=== PATIENT | female | born 1985 | race Caucasian/White ===

== ENCOUNTER 2021-12-28 00:45 | Day surgery (SDC) | payer BC, SELFPAY ==
[2021-12-26 08:18] VITALS: BMI 30.4
--- NOTE | 2021-12-26 08:23 | PC.NURSE ---
Report to the Outpatient Waiting Room, entrance under the green pavilion located off [facility], at time 1000_ on date _12/28/21_. OR Time: _1200. - You and your visitor will be asked a series of questions to screen for COVID 19 for your protection. - Only one visitor is allowed at this time. - The patient visitor is requested to leave or wait in car when not with patient. - A mask is required within the hospital. Patients may have clear liquids (water, carbonated beverages, clear teas, apple juice) until 3 hours prior to surgery with a maximum of 20 ounces. - No food from midnight until time of surgery - Infants may have breast milk until 4 hours before surgery, infant formula 6 hours prior to surgery. - Children will be allowed to drink immediately following surgery. If applicable, please bring a bottle or sippy cup to assist with drinking. Juice, water, soda, and popsicles are readily available. For infants on formula, please bring formula the day of surgery. Pacifiers are allowed. Take the following medications with a SIP of water the morning of surgery: ____NONE Date to take last dose Please no make-up, nail maltese, hairspray, perfume, deodorant, or body powder the day of surgery. No jewelry (including any body piercings) or valuables the day of surgery, leave them at home. Please take a shower or bath the night before, or the morning of, surgery with an antibacterial soap. Wear comfortable, loose fitting clothing. Children are encouraged to wear pajamas. - Jewelry must be removed prior to entering the operating room. Rings and piercings that are not removed may be cut off. - The hospital will not accept responsibility for valuables. - Please leave all valuables, including medications, at home the day of surgery. If you are going home after surgery, a licensed ice delivery driver must drive you home. - NO public transportation without another adult. - We recommend that an adult stay with you for 24 hours following discharge. - We also recommend that you do not drive, make important decision, drink alcoholic beverages, or take any drugs that were not prescribed by your health care provider for at least 24 hours after your discharge time. For Pediatric surgeries, we recommend two adults accompany the child home (only one inside the building at this time). Follow any additional instructions given to you from your surgeon. If you or anyone in your household have experienced Covid symptoms in the past week, please notify your surgeon or the nurse liaison at the phone number below for possible testing. Telephone instructions given to _PATIENT_and asked if any additional questions and then verbalized understanding. Patient advised to call surgeon office or pre surgery nurse liaison [phone] if any additional questions.
[2021-12-28] VITALS (8 sets, daily range): BP systolic 123–139; BP diastolic 74–95; PULSE 58–109; RESP 11–24; TEMP 36.2–36.5; O2SAT 99–100
[2021-12-28] MEDS: ACETAMINOPHEN 500 MG TABLET 1000 MG PO (11:10)
[2021-12-28] MEDS: GABAPENTIN 300 MG CAPSULE PO (11:10)
[2021-12-28] MEDS: LACTATED RINGERS 1,000 ML 30 ML IV CONT ×2 (11:15→13:22)
--- NOTE | 2021-12-28 11:21 | WPDANESEPPF ---
Anes - Initial Pre Proc Eval Procedure: Operation Date: 12/28/21 12:00 Proposed Procedures p Diagnostic Laparoscopy, Bilateral Laparoscopic Salpingectomy, Possible Left Ovarian Cyst Drainage - Kala Solis DO Date/Time: 12/28/21 11:21 Surgeon: Kala Solis DO Pre Op Diagnosis: desires sterilization Patient Data Age: 36 Gender: F Height: 1.6 m Weight: 81.2 kg Last Vital Signs Temp 36.2 C L 12/28/21 11:12 Pulse 90 12/28/21 11:12 Resp 14 12/28/21 11:12 BP 128/74 12/28/21 11:12 Pulse Ox 99 12/28/21 11:12 O2 Del Method Room Air 12/28/21 11:12 Allergies Allergy/AdvReac Type Severity Reaction Status Date / Time No Known Allergies Allergy Verified 12/28/21 11:16 Home Medications Medication Instructions Recorded Confirmed Type drospirenone (contraceptive) 4 mg 1 tablet PO DAILY 12/26/21 12/26/21 History (28) tablet (Slynd) Patient hx anesthesia problems: none Family hx anesthesia problems: none Results Review: All pre-operative results and documents have been reviewed as part of the pre-operative evaluation. [facility] Social History Social History Smoking status: Never smoker Alcohol intake: current Drinks per week: 6 Substance use type: does not use Living arrangements: with family Anes - Eval Final PreProcedure Day of Procedure 12/28/21 11:21 Patient weight: obese Heart: regular rate and rhythm Lungs: clear to auscultation Airway: Mallampati scale class II Neurological: alert and oriented Last oral intake: >/= 8 hours ASA classification: II Emergent: no Anesthetic plan: proceed Anesthesia type and monitoring: general ETT and standard monitoring Results Review: All pre-operative results and documents have been reviewed as part of the pre-operative evaluation. Informed Consent: The patient's anesthetic plan and its attendant risks and benefits were discussed with the patient/family/POA. Questions were solicited and answers provided to the satisfaction of the patient/family/POA.
[2021-12-28] MEDS: SCOPOLAMINE 1.5 MG PATCH TRANSDERM (11:28)
--- NOTE | 2021-12-28 11:38 | P.HP_ITS ---
H&P: HPI History of Present Illness Date/Time: 12/28/21 11:38 Chief Complaint: Undesired fertility Narrative: Patient presents with undesired fertility requesting permanent sterilization Review of Systems Review of Systems: All systems reviewed & are unremarkable except as noted in HPI and below [facility] Social History Social History Smoking status: Never smoker Alcohol intake: current Drinks per week: 6 Substance use type: does not use Living arrangements: with family Meds Home Medications and Allergies Home Medications Medication Instructions Recorded Confirmed Type drospirenone (contraceptive) 4 mg 1 tablet PO DAILY 12/26/21 12/26/21 History (28) tablet (Slynd) Allergies Allergy/AdvReac Type Severity Reaction Status Date / Time No Known Allergies Allergy Verified 12/28/21 11:16 Vital Signs Vital Signs - 24 hr 12/28/21 11:12 Temperature 36.2 C L Pulse Rate 90 Respiratory Rate 14 Blood Pressure 128/74 Pulse Oximetry 99 Oxygen Delivery Room Air Exam Const: General: comfortable and no acute distress Eyes: General: appearance normal, both eyes and all related structures Cardio: Rate: regular rate Rhythm: regular rhythm GI: GI Palp: Yes Soft to palpation Auscultation: normal bowel sounds Skin: General skin exam: normal color Lesions: lesion noted Rashes: rashes noted Wounds: no wounds Neuro: General: gait normal Speech: normal speech Sensory Exam: normal sensation Extrem: General: normal to inspection Psych: Mental Status: mental status grossly normal Affect: normal affect Assessment and Plan Assessment and plan (1) Sterilization: Code(s): Z30.2 - Encounter for sterilization Status: Acute Assessment and Plan: Undesired fertility Plan Diagnostic lap, bilateral salpingectomy
--- NOTE | 2021-12-28 11:40 | WPDHPUPDATE1 ---
History and Physical Update Update Date/Time: 12/28/21 11:40 History and Physical has been reviewed, including an updated exam of the patient. There are NO changes in the patient's condition. Risks, benefits, and alternatives have been discussed and questions answered. Patient agrees to proceed with procedure.
[2021-12-28] MEDS: BUPIVACAINE/EPINEPHRINE 0.25% 50 ML VIAL 10 ML INFILTRATE (12:26)
[2021-12-28] MEDS: KETOROLAC 30 MG/ML VIAL (*BKC) IV PUSH (12:45)
--- NOTE | 2021-12-28 12:51 | P.OP_ITS ---
Procedure Note - Detailed Date of Procedure 12/28/21 Pre-op Diagnosis desires sterilization Post-op Diagnosis Same Procedure Performed Diagnostic laparoscopy, bilateral salpingectomy, drainage of left ovarian cyst Surgeon Kala Solis, DO Anesthesia General Indications Undesired fertility Findings Normal appearing vulva and vaginal canal. Normal cervix. Internally, the bowels and liver were grossly normal. The pelvic organs were unremarkable except for a simple cyst on the left ovary. There were 3 isolated endometriosis lesions. The 1 on the anterior left lower uterine segment, and 2 in the posterior cul-de-sac. There were no adhesions or evidence of diffuse disease. Description of Procedure The patient was taken to the operating room where she was placed under general anesthesia. No preoperative antibiotics were indicated. A time-out was performed. The patient was straight cathed. A speculum was placed in the cervix was visualized, the anterior lip was grasped with a single-tooth te naculum. Cervix was sequentially dilated up to accommodate a Kroner uterine manipulator. The uterus was sounded to 8 cm. The manipulator was placed the tenaculum and speculum were removed. Gloves were changed attention was then turned to the abdomen. The skin below the umbilicus was grasped with 2 penetrating towel clamps and the area was injected with local. A small incision was made and a Veress needle was introduced. The saline water drop test was performed to confirm intraperitoneal placement. CO2 insufflation was started and the abdomen was brought up to a filling pressure of 15 mmHg. Veress needle was replaced with a 5 mm Optiview trocar which was inserted under direct visualization. Survey of the abdomen revealed no evidence of bowel or vascular injury upon entry. Patient was placed in steep Trendelenburg position. Additional port sites in the right and left lower quadrants were identified, injected and incised. 5 mm trocars were introduced under direct visualization. The pelvic organs were elevated and a survey was performed. The right tube was elevated and was cauterized and transected off using LigaSure. It was passed off through the assistant clinical nurse manager port. The procedure was repeated in an identical fashion on the left side. Following this the left cyst was drained and clear fluid was noted. The 3 endometriosis lesions were ablated using the monopolar hook attachment to the LigaSure. All surgical pedicles were reinspected and found to be hemostatic. CO2 insufflation was allowed to escape from the abdomen and the trocars and instruments were removed. The abdominal incisions were closed with subcuticular 4-0 Monocryl and Steri-Strips. The uterine manipulator was removed. The patient was taken to the recovery room in stable condition. All instrument sponge counts were correct at the conclusion of the procedure. Estimated Blood Loss 5 IV Fluids 900 Drains No Packing No Complications No immediate complications Condition Stable Disposition PACU
[2021-12-28] MEDS: fentaNYL CITRATE INJ (*CRX) 100 MCG/2 ML VIAL 25 MCG IV PUSH ×8 (13:07→13:48)
[2021-12-28] MEDS: oxyCODONE HCL (*CRX) 5 MG TAB IR PO (14:16)
== END 2021-12-28 14:43 | disposition home or self-care (01) ==
PROVIDERS: PCP Physician Assistant; Visit Provider Obstetrics & Gynecology Gynecologic Oncology
PROC: (CPT 49320; principal; 2021-12-28 12:00)
DX: Z30.2 Encounter for sterilization (principal); N83.202 Unspecified ovarian cyst, left side; N80.3 Endometriosis of pelvic peritoneum; E66.9 Obesity, unspecified; Z68.31 Body mass index [BMI] 31.0-31.9, adult
CPT/HCPCS: 58661; 58662; 88302; A9270; J1100; J1170; J1885; J2250; J2405; J2704; J2710; J3010; J7030; J7120